=== PATIENT | female | born 2000 | race Two or more races ===

== ENCOUNTER 2024-03-16 01:58 | Emergency (ER) | payer OTHER ==
[~2024-03-16] VITALS: Ht 157.5 cm; Wt 56.7 kg
[2024-03-16] MEDS ORDERED: DEXILANT60 MG (02:04)
[2024-03-16] MEDS ORDERED: HYOSCYAMINE SULFATE 0.125 MG TAB.SUBL SL STA (02:35)
[2024-03-16] MEDS ORDERED: FAMOTIDINE/PF 20 MG/2 ML VIAL IV PUSH STA (02:36)
[2024-03-16] MEDS ORDERED: PROMETHAZINE HCL 50 MG/ML AMPUL IM STA (02:36)
[2024-03-16] MEDS ORDERED: LACTOBACILLUS ACIDOPHILUS 1 CAP CAP PO STA (02:37)
[2024-03-16] MEDS ORDERED: 0.9 % SODIUM CHLORIDE 1,000 ML IV ONE (02:45)
[2024-03-16 02:55] LABS: HEMATOCRIT 43.8 % (36.0-45.00); MEAN CELL VOLUME 87.4 fL (80.00-100.00); MEAN CORPUSCULAR HEMOGLOBIN 29.9 pg (27.00-32.0); MEAN CORPUSCULAR HGB CONC 34.2 g/dl (32.0-36.0); PLATELET COUNT 221 K/uL (150-450); RED BLOOD COUNT 5.01 M/uL (4.00-6.00); RED CELL DISTRIBUTION WIDTH 12.7 % (11.5-14.5)
[2024-03-16 03:19] LABS: CALCIUM 9.7 mg/dL (8.5-10.1); CREATININE SERUM 0.85 mg/dL (0.55-1.02); GFR 82.88; POTASSIUM 3.57 mEq/L (3.5-5.1)
[2024-03-16 04:42] LABS: PH,URINE 6.5 (5.0-8.0); URINE APPEARANCE Clear; URINE BILIRRUBIN Negative (NEGATIVE); URINE BLOOD Negative; URINE COLOR Yellow; URINE GLUCOSE Negative (NEGATIVE); URINE KETONE 15 (NEGATIVE); URINE LEUKOCYTE Trace; URINE NITRATE Negative; URINE PROTEIN Negative (NEGATIVE)
[2024-03-16 04:45] LABS: URINE BACTERIA 138.5 uL (0.0-1933); URINE EPITHELIAL CELLS 2.9 uL (0.0-38.8); URINE RBC 12.9 uL (0.0-20.8)
[2024-03-16 06:29] LABS: URINE CAST 0.45 uL (0.0-1.40)
[2024-03-16] MEDS ORDERED: INTESTINEX680 M2 PO (06:57)
[2024-03-16] MEDS ORDERED: LEVSIN/SL0.125 MG SL (06:57)
[2024-03-16] MEDS ORDERED: ZOFRAN8 MG PO (06:57)
== END 2024-03-16 08:20 ==
LOC: ER 01:58
PROVIDERS: General Practice
DX: R11.2 Nausea with vomiting, unspecified (principal); R10.13 Epigastric pain

== ENCOUNTER 2025-05-27 22:00 | Emergency (ER) | payer OTHER ==
[~2025-05-27] VITALS: Ht 157.5 cm; Wt 54.4 kg
[~2025-05-27 22:00] MED LIST: DEXILANT60 MG; INTESTINEX680 M2 PO; LEVSIN/SL0.125 MG SL; ZOFRAN8 MG PO
[2025-05-27] MEDS ORDERED: LACTOBACILLUS ACIDOPHILUS 1 CAP CAP PO STA (23:15)
[2025-05-27] MEDS ORDERED: ONDANSETRON HCL 2 MG/ML VIAL IV STA (23:15)
[2025-05-27] MEDS ORDERED: FAMOTIDINE/PF 20 MG/2 ML VIAL IV PUSH STA (23:15)
[2025-05-27] MEDS ORDERED: RINGERS SOLUTION,LACTATED 1,000 ML IV STA (23:16)
[2025-05-27] MEDS ORDERED: HYOSCYAMINE SULFATE 0.125 MG TAB.SUBL SL STA (23:31)
[2025-05-27] MEDS ORDERED: ONDANSETRON HCL 2 MG/ML VIAL ONE (23:38)
[2025-05-27] MEDS ORDERED: HYOSCYAMINE SULFATE 0.125 MG TAB.SUBL ONE (23:39)
[2025-05-27] MEDS ORDERED: LACTOBACILLUS ACIDOPHILUS 1 CAP CAP PO ONE (23:39)
[2025-05-28 00:25] LABS: BASO % 0.2 % (0.1-1.2); EOS # 0.08 (0.04-0.54); EOS % 0.6 % (0.7-7.0); LYMPH # 1.41 (1.18-3.74); LYMPH % 11.3 % (19.3-53.1); MEAN PLATELET VOLUME 11.40 fl (9.4-12.4); MONO # 0.84 (0.24-0.82); MONO % 6.8 % (4.7-12.5); NEUT # 10.05 (1.56-6.13); NEUT % 80.9 % (34.0-71.1); RED CELL DISTRIBUTION WIDTH 11.4 % (11.6-14.4)
[2025-05-28] MEDS ORDERED: LACTOBACILLUS ACIDOPHILUS 1 CAP CAP PO ONE (00:36)
[2025-05-28 00:51] LABS: ALT/SGPT 29.0 U/L (12-78); AST/SGOT 23.0 U/L (15-37); BILIRUBIN TOTAL 0.64 mg/dL (0.3-1.2); BUN CREA RATIO 8.0 (7.0-25.0); CREATININE SERUM 0.83 mg/dL (0.55-1.02); GFR 84.46; GLOBULINA 3.9 G/DL (2.4-3.5); GLUCOSE FASTING 88.0 mg/dL (65-100); OSMOLALITY SERUM 277.0 MOSM/KG (275-295)
[2025-05-28] MEDS ORDERED: METRONIDAZOLE500 MG PO (03:35)
[2025-05-28] MEDS ORDERED: DICY20TA PO (03:35)
[2025-05-28] MEDS ORDERED: PEPCID AC20 MG PO (03:35)
[2025-05-28] MEDS ORDERED: CIPRO500 MG PO (03:35)
[2025-05-28] MEDS ORDERED: INTESTINEX680 M1 PO (03:35)
== END 2025-05-28 04:57 | disposition home or self-care (01) ==
LOC: ER 22:01
PROVIDERS: General Practice
DX: K52.89 Other specified noninfective gastroenteritis and colitis (principal); K29.70 Gastritis, unspecified, without bleeding